=== PATIENT | male | born 1950 | race Caucasian/White ===

== ENCOUNTER 2019-01-09 10:19 | Emergency (ER) | payer OTHER, SELFPAY ==
[2019-01-09 10:19] VITALS: BP 159/72; PULSE 81; RESP 16; TEMP 36.4; O2SAT 95
--- NOTE | 2019-01-09 10:36 | EKG12_ITS ---
Test Reason : DIZZINESS Blood Pressure : / mmHG Vent. Rate : 066 BPM Atrial Rate : 066 BPM P-R Int : 166 ms QRS Dur : 082 ms QT Int : 364 ms P-R-T Axes : 059 052 044 degrees QTc Int : 381 ms Normal sinus rhythm Normal ECG Confirmed by MARE GARCIA ([id number]), editor managing newspaper FILOMENA VELASQUEZ ([id number]) on 01/12/2019 1:49:00 PM Referred By: ABE Confirmed By:MARE GARCIA
--- NOTE | 2019-01-09 10:40 | CT_ITS ---
STUDY: CT BRAIN WITHOUT CONTRAST REASON FOR EXAM: Male, 68 years old. RADIATION DOSAGE (If Supplied By Facility): CTDIvol = ( 44.99 ) mGy, DLP = ( 812.98 ) mGycm TECHNIQUE: Transaxial CT imaging of the brain was performed without administration of intravenous contrast material. Individualized dose optimization techniques were used for this CT. COMPARISON: No relevant priors. FINDINGS: The ventricular system and cerebral sulci are within normal limits. There is no evidence of increased or decreased brain density. No epidural, subdural or intracerebral hematoma. The frontal and maxillary sinuses are clear but there is opacification of some of the ethmoidal air cells. The sphenoid sinus is unremarkable and so are the orbits. The mastoid air cells are clear. CT/Brain/Head without Contrast IMPRESSION: Negative unenhanced CT scan of the brain except for opacification of the some ethmoidal air cells. Electronically Signed: David Brown, at 11:16 EDT Tel , Service support ,
[2019-01-09 10:54] LABS: Absolute Neutrophil Count 2.2 X10^3/uL (2.0-7.7); Basophil# 0.07 X10^3/uL; Basophil% 1.4 % (0-1); Eosinophil# 0.16 X10^3/uL; Eosinophils% 3.3 % (0-5); Hematocrit 45.3 % (40-54); Hemoglobin 15.4 g/dl (13.0-16.5); Lymphocyte % 39.3 % (19-41); Mean Corpuscular Hgb 28.6 pg (27.0-32.0); Mean Corpuscular Volume 84.2 fL (80-94); Mean Platelet Vol. 9.2 fl (6.2-12.0); Monocyte# 0.48 X10^3/uL; Monocyte% 9.9 % (0-10); Neutrophil # 2.21 X10^3/uL (2.7-7.7); Neutrophil % 45.9 % (47-70); Platelet Count 197 K/mm3 (150-450); RBC Distribution Width CV 13.1 % (11.6-14.6); RBC Distribution Width SD 39.8 fl (35.1-43.9); Red Blood Count 5.38 M/mm3 (4.6-6.2); White Blood Count 4.8 K/mm3 (4.4-11.0)
[2019-01-09 10:56] LABS: POSITIVE COUNT NO; POSITIVE DIFFERENTIAL NO; POSITIVE MORPHOLOGY NO
--- NOTE | 2019-01-09 11:00 | ED.VIS.GEN ---
History of Present Illness <Allyson Gonsalez - Last Filed: 01/09/19 11:00> Informant: Patient Onset: Yesterday Narrative: Patient presents to the ED with reports of intermittent dizziness that started yesterday morning. He states that yesterday morning when he was sitting in his chair he began to feel dizzy, what he describes as lightheaded as though he was going to pass out. He denies any associated chest pain or shortness of breath. This lasted for around an hour and then resolved. He was able to continue his day and was quite active throughout the day. This morning, he experienced similar symptoms. He feels as though the symptoms are improving, however have not resolved and they did not last as long yesterday. He still denies any chest pain or shortness of breath. This dizziness is not exacerbated with movement. He denies any associated nausea, vomiting, urinary symptoms. <Jaylin Galvan - Last Filed: 01/09/19 12:45> Chief Complaint: Dizziness Past Medical History Smoking Status: Former smoker <[email or web address] - Last Filed: 01/09/19 11:00> <Jaylin Galvan - Last Filed: 01/09/19 12:45> - Allergies and Home Meds Allergies/Adverse Reactions: Allergies No Known Allergies Allergy (Verified 01/09/19 10:21) Primary Care Physician: Santi Burk MD [Primary Care Provider] - Review of Systems General: Denies: Chills, Fever, Sweats Eyes: Denies: Visual changes - bilaterally, Diplopia ENT: Denies: Rhinorrhea, Sore throat Cardiovascular: Denies: Chest pain, Palpitations Respiratory: Denies: Dyspnea, Cough, Dyspnea on exertion Gastrointestinal: Denies: Abdominal pain, Nausea, Vomiting, Diarrhea, Melena, Hematochezia Genitourinary: Denies: Dysuria, Hematuria, Frequency Musculoskeletal: Denies: Back pain, Extremity Pain Skin: Denies: Rash, Wounds Neurological: Reports: - - Dizziness. Denies: Headache, Weakness, Numbness <Jyalin Galvan - Last Filed: 01/09/19 12:45> Physical Exam Vital Signs/Narrative: Vital Signs Temp Pulse Resp BP Pulse Ox 01/09/19 10:19 97.6 F L 81 16 159/72 H 95 <Allyson Gonsalez - Last Filed: 01/09/19 11:00> Vital Signs/Narrative: Vital Signs Temp Pulse Resp BP Pulse Ox 01/09/19 10:19 97.6 F L 81 16 159/72 H 95 General: Well nourished, Well developed, No Acute Distress Head: Normocephalic, Atraumatic Eyes: Perrl, EOMI ENT: Moist mucous membranes, No rhinorrhea Neck: Supple, Nontender Cardiovascular: Regular rate, Regular rhythm, No murmurs Respiratory: No distress, CTA bilaterally, Chest nontender Abdomen: Soft, Nontender, Nondistended, Normal bowel sounds Back: Nontender, Normal Inspection Extremities: Nontender, No edema Skin: Normal color, No rash Neurological: Alert, Oriented x3, Cranial nerves II-XII grossly intact, Normal Strength, Normal Sensation, Normal DTR, Normal Gait, - - No ataxia. Patient was able to ambulate into the emergency department without difficulty. Psychological: Normal affect, Normal Mood <Jaylin Galvan - Last Filed: 01/09/19 12:45> Diagnostic/Tx/Re-eval - Medical Decision Making Patient was seen with PA agree with history and physical and plan see above patient complains of dizziness began last day or 2 no other complaints no neck chest or abdominal pain physical exam head neck chest abdomen upper lower extremities neuro exam unremarkable please see the work-up above for full details <Allyson Gonsalez - Last Filed: 01/09/19 11:00> - Medical Decision Making Resents to the ED with several episodes of feeling dizzy yesterday morning and this morning. Upon arrival, he appears well nontoxic. Neurological exam is grossly normal. He is experiencing these episode while sitting in his chair. He denies any chest pain or shortness of breath. EKG shows no ischemic changes. Normal sinus rhythm with ventricular rate of 66 bpm. UT interval 166. QRS 82. QT 364. No STEMI stable. CBC, BMP, troponin, and CT brain are all unremarkable. At this time, I think it is safe for the patient to be discharged home this PCP. He was educated on signs/symptoms to return to the ED. He is provided discharge instructions. He is agreeable to plan. <Jaylin Galvan - Last Filed: 01/09/19 12:45> ED Disposition <Allyson Gonsalez - Last Filed: 01/09/19 11:00> <Jaylin Galvan - Last Filed: 01/09/19 12:45> - Plan for ED Patient: Disposition: Home or Assisted Living Instructions: DIZZINESS, Unk Cause Referrals: Santi Burk MD [Primary Care Provider] - Additional Instructions: Follow up with your outpatient provider. Return with change, or worsening symptoms.
[2019-01-09 11:14] LABS: Anion Gap 5 (5-15); BUN 19 mg/dL (7-18); BUN/Creat Ratio 19.6 RATIO (10-20); Chloride 108 mmol/L (98-107); Creatinine, Serum 0.97 mg/dL (0.70-1.30); EST Glomerular Filtration Rate 83 mL/min (>60); Est Glom Filt Rate - Afr Amer 100 mL/min (>60); Estimated Creatinine Clearance 72.47 ml/min; Glucose 135 mg/dL (74-106); Sodium Level 139 mmol/L (136-145)
[2019-01-09 11:46] VITALS: BP 137/80; PULSE 71; RESP 14; O2SAT 95
== END 2019-01-09 11:47 | disposition home or self-care (01) ==
PROVIDERS: Emergency Provider Physician Assistant; Family Provider Family Medicine; PCP Family Medicine
DX: R42 Dizziness and giddiness (principal); Z87.891 Personal history of nicotine dependence
CPT/HCPCS: 70450; 80048; 84484; 85025; 93005; 99284; A4216